=== PATIENT | male | born 1975 | race Caucasian/White ===

== ENCOUNTER 2022-05-29 19:10 | Observation (INO) | payer OTHER ==
[2022-05-29 19:21] VITALS: TEMP 98.9; BMI 25.8
[2022-05-29] MEDS ORDERED: SODIUM CHLORIDE 1,000 ML IV SCH ×3 (19:30→23:00)
[2022-05-29] MEDS ORDERED: ACETAMINOPHEN INJECTION 100 ML IVPB ONE (19:38)
[2022-05-29] MEDS ORDERED: ACETAMINOPHEN 1000 MG/100 ML BAG IVPB ONE (19:41)
[2022-05-29 20:08] LABS: BASO % 0.5 % (0-2.0); EOS % 0.8 % (0-4.5); HEMATOCRIT 39.9 % (35.4-49); HEMOGLOBIN 13.5 GM/dL (11.7-16.9); LYMPH % 33.6 % (8-40); MCHC 33.9 g/dl (32.0-35.9); MEAN CELL VOLUME 97.4 fl (80-96); MONO % 9.7 % (3.8-10.2); NEUT % 55.4 % (42.8-82.8); PLATELET COUNT 208 10^3/uL (134-434); RDW 13.3 % (11.9-15.9); WHITE BLOOD COUNT 5.6 K/mm3 (4.0-10.0)
[2022-05-29 20:18] LABS: INR 1.17 (0.83-1.09); PROTHROMBIN TIME (PATIENT) 13.6 SEC (9.7-13.0)
[2022-05-29 20:20] LABS: ACTIVATED PTT 34.1 SECONDS (25.2-36.5)
[2022-05-29 20:28] LABS: VENOUS BASE EXCESS 1.3 mmol/L (-2-2); VENOUS O2 SATURATION 46.4 % (70-80); VENOUS PH 7.337 (7.310-7.410)
[2022-05-29 20:34] LABS: CHLORIDE 111 mmol/L (98-107); SODIUM 145 mmol/L (136-145)
[2022-05-29 20:36] LABS: ALBUMIN 4.1 g/dl (3.4-5.0); ANION GAP 4 MMOL/L (8-16); CALCIUM 8.9 mg/dL (8.5-10.1); CO2 30 mmol/L (21-32)
[2022-05-29 20:38] LABS: BLOOD UREA NITROGEN 19.7 mg/dL (7-18); GLUCOSE,RANDOM 100 mg/dL (74-106)
[2022-05-29 20:40] LABS: CREATININE 1.2 mg/dL (0.55-1.3); SGOT/AST 36 U/L (15-37); SGPT/ALT 35 U/L (13-61)
[2022-05-29 20:41] LABS: CHOLESTEROL 110 mg/dL (50-200)
[2022-05-29 20:42] LABS: LDL CHOLESTEROL (ONLY SJRH) 59 mg/dL (5-100); TRIGLYCERIDES 66 mg/dL (0-150)
[2022-05-29 20:43] LABS: BILIRUBIN,TOTAL 0.6 mg/dL (0.2-1)
[2022-05-29 20:44] LABS: ALK PHOS 77 U/L (45-117); HDL CHOLESTEROL 47 mg/dL (40-60)
[2022-05-29 20:45] LABS: TOT PROT 6.8 g/dl (6.4-8.2)
[2022-05-29] MEDS ORDERED: KETOROLAC TROMETHAMINE 15 MG/ML VIAL IVPUSH ONE (22:27)
[2022-05-29] MEDS ORDERED: KETOROLAC TROMETHAMINE 15 MG/ML VIAL ONE (22:32)
[2022-05-29] MEDS ORDERED: ACETAMINOPHEN 325 MG TABLET (FP) PO PRN (22:48)
[2022-05-29] MEDS ORDERED: LACTATED RINGERS SOLUTION 1,000 ML/1,000 ML INFUS.BAG IV SCH (23:00)
[2022-05-29 23:17] LABS: COCAINE, UR NEGATIVE (NEGATIVE); OPIATES, URI NEGATIVE (NEGATIVE)
[2022-05-29 23:18] LABS: METHADONE, UR NEGATIVE (NEGATIVE); URINE AMPHETAMINES NEGATIVE (NEGATIVE); URINE BENZODIAZEPINES NEGATIVE (NEGATIVE)
[2022-05-29 23:25] LABS: PHENCYCLIDINE,URINE POSITIVE (NEGATIVE); URINE BARBITURATES NEGATIVE (NEGATIVE)
[2022-05-29 23:54] VITALS: BP 144/92; PULSE 52; RESP 18
[2022-05-30 00:02] LABS: PH,URINE 5.5 (5.0-8.0); URINE APPEARANCE CLEAR; URINE BILIRUBIN NEGATIVE (NEGATIVE); URINE COLOR YELLOW; URINE GLUCOSE (UA) NEGATIVE (NEGATIVE); URINE KETONE 1+ (NEGATIVE); URINE LEUK ESTERASE NEGATIVE (NEGATIVE); URINE NITRITE NEGATIVE (NEGATIVE); URINE PROTEIN TRACE (NEGATIVE)
[2022-05-30] MEDS ORDERED: LACTATED RINGERS SOLUTION 1,000 ML/1,000 ML INFUS.BAG IV SCH (00:22)
[2022-05-30] MEDS ORDERED: ENOXAPARIN NA (PORCINE) 40 MG/0.4 ML DISP.SYRIN SQ SCH (10:00)
== END 2022-05-30 02:05 | disposition left against medical advice (07) ==
LOC: JER 19:10 → UNDOADMOB 22:34 → JERBED 22:34 → INTOOBSV 22:34 → JERBED 22:47 → J5S 05-30 01:27 → UNDODISOB 05-30 02:05
PROVIDERS: ADMIT Internal Medicine; ATTEND Nurse Practitioner Family
PROC: 3E033NZ Introduction of Analgesics, Hypnotics, Sedatives into Peripheral Vein, Percutaneous Approach (ICD-10-PCS; principal; 2022-05-29)
PROC: 3E0333Z Introduction of Anti-inflammatory into Peripheral Vein, Percutaneous Approach (ICD-10-PCS; 2022-05-29)
PROC: 3E0337Z Introduction of Electrolytic and Water Balance Substance into Peripheral Vein, Percutaneous Approach (ICD-10-PCS; 2022-05-29)
DX: R41.82 Altered mental status, unspecified (principal); G92.9 Unspecified toxic encephalopathy; Z29.8 Encounter for other specified prophylactic measures
CPT/HCPCS: 36415; 70450-TC; 71045-TC-FY; 73610-TC-RT-FY; 80053; 80061; 80307; 81003; 82550; 82553; 82803; 82962; 83036; 84484; 85025; 85610; 85730; 86850; 86900; 86901; 93005; 93010; 96361; 96374; 96375; 99285-25; C9803-CS; G0378; U0003; U0005